=== PATIENT | male | born 1985 | race Caucasian/White ===

== ENCOUNTER 2016-12-22 21:11 | Emergency (ER) | payer SELFPAY ==
--- NOTE | ~2016-12-22 | CR141 ---
[facility] A Service of [facility] RADIOLOGY TEXT RESULTS PATIENT: PATITO DUMONT LOCATION: [place] : [birth year] UNIT #: [id number] AGE: [address]: Renzo Last MD SEX: M ORDER DR: [id number] [facility] [address] [place] [address]. [place], [place] [address] [id number] MR#: [id number] Acc #: [id number] NAME: PATITO DUMONT : 1985 SEX: M STUDY DATE/TIME: 12/22/2016 21:19 UNIT: [facility] ROOM: STUDY DESCRIPTION: CR Hand Min 3 Views Lt Attending Physician: Renzo Last M.D. Ordering Physician: Ed Doctor [id number] [facility] Primary Care Physician: Primary Care Physician No MEDICAL IMAGING REPORT This report is preliminary unless electronic signature is present EXAM Left hand 3 views HISTORY Laceration to the left hand. Glass cut hand today. FINDINGS 3 views of the left hand demonstrates bandage material between the thumb and index finger. No fracture or foreign body identified. Osseous structures appear normal. There is laceration at the base of the thumb, left hand. IMPRESSION Soft tissue laceration base of the thumb of the left hand. No fracture or foreign body. Dictated by... Caden Coppola M.D. THIS IS AN ELECTRONICALLY VERIFIED REPORT Caden Coppola M.D. at 12/23/2016 8:43 PM Corine TD: 12/23/2016 11:02 JOB #: [id number] MEDICAL IMAGING REPORT COPY
[~2016-12-22 21:11] MED LIST: AMOXICILLIN PO; DICLOFENAC PO; LORTAB 10-5001 EACH PO; LORTAB 5/500 TA1 TA1 PO; NO MEDICATIONS; ORUDIS75 M1 DOB; PEN-VEE K PO; VOLTAREN50 MG PO
== END 2016-12-22 22:07 | disposition home or self-care (01) ==
LOC: CED 21:11
DX: S61.412A Laceration without foreign body of left hand, initial encounter (principal); F41.9 Anxiety disorder, unspecified; F17.210 Nicotine dependence, cigarettes, uncomplicated; W25.XXXA Contact with sharp glass, initial encounter; Y92.009 Unspecified place in unspecified non-institutional (private) residence as the place of occurrence of the external cause
CPT/HCPCS: 12001; 73130; 99283

== ENCOUNTER 2017-01-03 07:32 | Emergency (ER) | payer SELFPAY | END 2017-01-03 07:40 | disposition home or self-care (01) | LOC: CFTX 07:32 | DX: S61.411D Laceration without foreign body of right hand, subsequent encounter (principal); F17.210 Nicotine dependence, cigarettes, uncomplicated; Z88.8 Allergy status to other drugs, medicaments and biological substances | CPT/HCPCS: 99281 ==

== ENCOUNTER 2017-05-21 21:54 | Emergency (ER) | payer OTHER ==
--- NOTE | ~2017-05-21 | CT71 ---
[facility] A Service of [facility] RADIOLOGY TEXT RESULTS PATIENT: PATITO DUMONT LOCATION: [place] : [birth year] UNIT #: [id number] AGE: [address]: Trace Ferraro MD SEX: M ORDER DR: [id number] [facility] [address]. [place], [place] [address] [id number] MR#: [id number] Acc #: [id number] NAME: PATITO DUMONT : 1985 SEX: M STUDY DATE/TIME: 05/22/2017 0017 UNIT: [facility] ROOM: STUDY DESCRIPTION: CT Head Wo Contrast Attending Physician: Miguel Ferraro M.D. Ordering Physician: Miguel Ferraro M.D. Primary Care Physician: No Primary Care Physician MEDICAL IMAGING REPORT This report is preliminary unless electronic signature is present EXAM Head CT, 05/22, 0017 hours. INDICATION Left side headache for 3 days. No trauma. COMPARISON Comparison is 11/06/2011. TECHNIQUE Axial noncontrast images were obtained from the skull base to the vertex. This CT exam was performed with one or more of the following radiation dose reduction techniques: automatic exposure control, adjustment of mA and/or kV according to patient size, and iterative reconstruction. FINDINGS Ventricular size and configuration are normal. There is no evidence of acute infarct or hemorrhage. There are no extraaxial fluid collections. No mass lesion or mass effect is seen. There are no skull fractures. IMPRESSION Normal noncontrast head CT. Dictated by... Efrain Bocanegra Jr., M.D. THIS IS AN ELECTRONICALLY VERIFIED REPORT Efrain Bocanegra Jr., M.D. at 05/23/2017 3:13 AM RLK/clari [facility] A Service [facility] RADIOLOGY TEXT RESULTS PATIENT: PATITO DUMONT LOCATION: [place] : [birth year] UNIT #: [id number] AGE: [address]: Trace Ferraro MD SEX: M ORDER DR: TD: 05/22/2017 20:36 JOB #: [id number] MEDICAL IMAGING REPORT Page 1 of 1 COPY
== END 2017-05-22 02:55 | disposition home or self-care (01) ==
LOC: CED 21:54
DX: R51 Headache (principal); I10 Essential (primary) hypertension; F17.210 Nicotine dependence, cigarettes, uncomplicated; Z88.5 Allergy status to narcotic agent
CPT/HCPCS: 70450; 96372; 99284; J1885